=== PATIENT | male | born 1935 | race Caucasian/White ===

== ENCOUNTER → 2022-07-16 | Outpatient (CLI) | payer MEDICARE, BC ==
[~2022-07-16] MED LIST: PROHANCE 279.3MG/ML 15ML VIAL ONE; PROHANCE 279.3MG/ML 5ML VIAL ONE
== END ==
LOC: M PLAIMG 12:53
PROVIDERS: ATTEND Orthopaedic Surgery
DX: M16.11 Unilateral primary osteoarthritis, right hip (principal); M25.451 Effusion, right hip; M70.61 Trochanteric bursitis, right hip; M51.36 Other intervertebral disc degeneration, lumbar region; N40.0 Benign prostatic hyperplasia without lower urinary tract symptoms
CPT/HCPCS: 73723; A9576